=== PATIENT | male | born 2000 | race American Indian/Alaskan Native ===

== ENCOUNTER 2020-06-17 20:26 | Emergency (ER) | payer SELFPAY ==
[2020-06-17] MEDS ORDERED: IBUPROFEN 600 MG TAB PO ONE (21:56)
[2020-06-17] MEDS ORDERED: predniSONE 20 MG TAB PO ONE (21:56)
--- NOTE | 2020-06-17 22:43 | XRay Report ---
CHEST 1 VIEW 06/17/2020 10:29 PM INDICATION / CLINICAL INFORMATION: cough. COMPARISON: None available. FINDINGS: SUPPORT DEVICES: None. HEART / MEDIASTINUM: No significant abnormality. LUNGS / PLEURA: No significant pulmonary or pleural abnormality. No pneumothorax. ADDITIONAL FINDINGS: No significant additional findings. IMPRESSION: 1. No acute findings. Signer Name: Damian Nolasco MD Signed: 06/17/2020 10:39 PM Workstation Name: [id number]
--- NOTE | 2020-06-17 23:17 | Emergency Department Report ---
- General Chief Complaint: Upper Respiratory Infection Stated Complaint: COVID SYMPTOMS Source: patient Mode of arrival: Ambulatory Limitations: No Limitations - History of Present Illness Initial Comments: Patient is a 20-year-old -Prydeinig male with a history of HIV presents to the ED with complaint of acute onset persistent nasal and sinus congestion, dry cough, diffuse body aches and pains for the last 2 days. Patient states that he has not taken any medications to relieve his symptoms in the last 2 days. Patient denies dizziness, syncope, fever, chills, nausea, vomiting, sore throat, abdominal pain, loss of sense of taste or smell, dysuria, urinary frequency and urgency, testicular pain or penile discharge. MD Complaint: cough, rhinorrhea, nasal congestion, sinus pain -: Sudden, days(s) (2) Severity: moderate Severity scale (0 -10): 3 Quality: dull, aching Consistency: constant Improves With: nothing Worsens With: nothing Associated Symptoms: denies other symptoms, rhinorrhea, nasal congestion, cough. denies: fever, chills, myalgias, diaphoresis, headache, chest pain, shortness of breath, abdominal pain, nausea, vomiting, diarrhea, rash, confusion, weight loss, epistaxis, hoarseness, ear pain Treatments Prior to Arrival: none - Related Data Previous Rx's Medication Instructions Recorded Last Taken Type Azithromycin [Zithromax Z-TRENT] 250 mg PO DAILY #6 tablet 06/17/20 Unknown Rx Benzonatate [Tessalon Perles] 100 mg PO Q8HR #30 capsule 06/17/20 Unknown Rx Ibuprofen [Motrin] 600 mg PO Q8H PRN #20 tablet 06/17/20 Unknown Rx methylPREDNISolone [Medrol 4MG 4 mg PO DAILY #21 tab.ds.pk 06/17/20 Unknown Rx DOSEPAK (21 tabs)] Allergies Allergy/AdvReac Type Severity Reaction Status Date / Time No Known Allergies Allergy Verified 06/17/20 20:32 ED Review of Systems ROS: Stated complaint: COVID SYMPTOMS Other details as noted in HPI Constitutional: denies: chills, fever Eyes: denies: eye pain, eye discharge, vision change ENT: congestion. denies: ear pain, throat pain Respiratory: cough. denies: shortness of breath, wheezing Cardiovascular: denies: chest pain, palpitations Endocrine: no symptoms reported Gastrointestinal: denies: abdominal pain, nausea, vomiting, diarrhea Genitourinary: denies: urgency, dysuria Musculoskeletal: denies: back pain, joint swelling, arthralgia Skin: denies: rash, lesions Neurological: denies: headache, weakness, paresthesias Psychiatric: denies: anxiety, depression Hematological/Lymphatic: denies: easy bleeding, easy bruising ED Past Medical Hx - Past Medical History Previous Medical History?: Yes Hx HIV: Yes - Surgical History Past Surgical History?: No - Social History Smoking Status: Current Every Day Smoker Substance Use Type: None - Medications Home Medications: Home Medications Medication Instructions Recorded Confirmed Last Taken Type Azithromycin [Zithromax Z-TRENT] 250 mg PO DAILY #6 tablet 06/17/20 Unknown Rx Benzonatate [Tessalon Perles] 100 mg PO Q8HR #30 capsule 06/17/20 Unknown Rx Ibuprofen [Motrin] 600 mg PO Q8H PRN #20 tablet 06/17/20 Unknown Rx methylPREDNISolone [Medrol 4MG 4 mg PO DAILY #21 tab.ds.pk 06/17/20 Unknown Rx DOSEPAK (21 tabs)] ED Physical Exam - General Limitations: No Limitations General appearance: alert, in no apparent distress - Head Head exam: Present: atraumatic, normocephalic, normal inspection - Eye Eye exam: Present: normal appearance, PERRL, EOMI Pupils: Present: normal accommodation - ENT ENT exam: Present: normal orophraynx, mucous membranes moist, TM's normal bilaterally, normal external ear exam, other (Grossly congested nasal passages) - Neck Neck exam: Present: normal inspection, full ROM - Respiratory Respiratory exam: Present: normal lung sounds bilaterally. Absent: respiratory distress, wheezes, rales, rhonchi, chest wall tenderness, accessory muscle use, decreased breath sounds, prolonged expiratory - Cardiovascular Cardiovascular Exam: Present: regular rate, normal rhythm, normal heart sounds. Absent: systolic murmur, diastolic murmur, rubs, gallop - GI/Abdominal GI/Abdominal exam: Present: soft, normal bowel sounds. Absent: tenderness, guarding, rebound, hyperactive bowel sounds, hypoactive bowel sounds, organomegaly - Extremities Exam Extremities exam: Present: normal inspection, full ROM, normal capillary refill - Back Exam Back exam: Present: normal inspection, full ROM. Absent: tenderness, CVA tenderness (R), CVA tenderness (L), muscle spasm, paraspinal tenderness, vertebral tenderness - Neurological Exam Neurological exam: Present: alert, oriented X3, CN II-XII intact, normal gait, reflexes normal - Psychiatric Psychiatric exam: Present: normal affect, normal mood - Skin Skin exam: Present: warm, dry, intact, normal color. Absent: rash ED Course Vital Signs 06/17/20 06/17/20 20:30 23:30 Temperature 98.0 F 98 F Pulse Rate 80 79 Respiratory 20 18 Rate Blood Pressure 113/67 Blood Pressure 117/70 [Left] O2 Sat by Pulse 100 98 Oximetry ED Medical Decision Making - Radiology Data Radiology results: report reviewed, image reviewed Findings [facility] [address] [place] [address] XRay Report Signed Patient: ROSA BRIGGS MR#: [id number] : 2000 Acct:[id number] Age/Sex: 20 / M ADM Date: 06/17/20 Loc: ED Attending Dr: Ordering Physician: CHARLY ALMANZA Date of Service: 06/17/20 Procedure(s): XR chest 1V ap Accession Number(s): [id number] cc: CHARLY ALMANZA Fluoro Time In Minutes: CHEST 1 VIEW 06/17/2020 10:29 PM INDICATION / CLINICAL INFORMATION: cough. COMPARISON: None available. FINDINGS: SUPPORT DEVICES: None. HEART / MEDIASTINUM: No significant abnormality. LUNGS / PLEURA: No significant pulmonary or pleural abnormality. No pneumothorax. ADDITIONAL FINDINGS: No significant additional findings. IMPRESSION: 1. No acute findings. Signer Name: Abhay Nolasco MD Signed: 06/17/2020 10:39 PM Workstation Name: [id number] Transcribed By: RH Dictated By: ABHAY NOLACSO III Electronically Authenticated By: ABHAY NOLASCO III Signed Date/Time: 06/17/202238 DD/ 38 TD/TT: - Medical Decision Making This is a 20-year-old -Prydeinig male with a history of HIV presents to the ED with complaint of acute onset persistent nasal and sinus congestion, dry cough, diffuse body aches and pains for the last 2 days. Patient states that he has not taken any medications to relieve his symptoms in the last 2 days. In the ED, patient is alert and oriented x3 and is not in distress. Patient was treated for pain in the ED. Chest x-ray shows no acute cardiopulmonary abnormalities or pneumonitis. On reevaluation, patient pain is well controlled medications. Patient was discharged home on medications and advised to follow- up with his primary care physician in 7 to 10 days for reevaluation. Patient is advised return to the ED immediately if symptoms get worse. - Differential Diagnosis URI; bronchitis; pneumonia; viral syndrome Critical care attestation.: If time is entered above; I have spent that time in minutes in the direct care of this critically ill patient, excluding procedure time. ED Disposition Clinical Impression: Acute upper respiratory infection Acute bronchitis Qualifiers: Bronchitis organism: other organism Qualified Code(s): J20.8 - Acute bronchitis due to other specified organisms Disposition: DC- TO HOME OR SELFCARE Is pt being admited?: No Does the pt Need Aspirin: No Condition: Stable Instructions: Acute Bronchitis, Adult, [id number], Upper Respiratory Infection, Adult, [id number], Acute Bronchitis (ED) Additional Instructions: Chest x-ray is unremarkable. Therefore take medications with food, drink plenty of fluids and follow up with your Primary Care Physician in 7-10 days for reevaluation. Return to the ED immediately if symptoms get worse. Prescriptions: methylPREDNISolone [Medrol 4MG DOSEPAK (21 tabs)] 4 mg PO DAILY #21 tab.ds.pk Ibuprofen [Motrin] 600 mg PO Q8H PRN #20 tablet PRN Reason: Pain Benzonatate [Tessalon Perles] 100 mg PO Q8HR #30 capsule Azithromycin [Zithromax Z-TRENT] 250 mg PO DAILY #6 tablet Referrals: [facility] [Provider Group] - 3-5 Days Time of Disposition: 23:14 Print Language: SAMOAN
[2020-06-17 23:31] VITALS: BP 117/70
== END 2020-06-17 23:29 | disposition home or self-care (01) ==
LOC: ED 20:26
DX: J20.9 Acute bronchitis, unspecified (principal); J06.9 Acute upper respiratory infection, unspecified; F17.200 Nicotine dependence, unspecified, uncomplicated; Z21 Asymptomatic human immunodeficiency virus [HIV] infection status; Z79.1 Long term (current) use of non-steroidal anti-inflammatories (NSAID); Z79.2 Long term (current) use of antibiotics; Z79.899 Other long term (current) drug therapy
CPT/HCPCS: 71045; 99283; J7512